=== PATIENT | male | born 1975 | race Caucasian/White ===

== ENCOUNTER 2016-12-14 17:27 | Emergency (ER) | payer OTHER ==
[2016-12-14 17:40] VITALS: RESP 18
[2016-12-14] MEDS ORDERED: ACETAMINOPHEN TAB 500 MG TAB PO STA (18:59)
[2016-12-14] MEDS ORDERED: ONDANSETRON ODT 4 MG TAB PO STA (18:59)
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
[2016-12-14 20:15] VITALS: TEMP 97.7
--- NOTE | 2016-12-14 20:33 | CT ---
EXAMINATION TYPE: CT brain wo con DATE OF EXAM: 12/14/2016 COMPARISON: NONE HISTORY: Fall with posterior head injury. Visual disturbance, depth perception changes and nausea. CT DLP: 1108.[address] of the brain was performed. The ventricles, basal cisterns and sulci overlying the cerebral convexities demonstrate a normal appe arance. There is no evidence for intracranial hemorrhage or sulcal effacement. No mass effects are seen. Osseous calvarium is intact. If symptoms persist consider MRI as clinically warranted. IMPRESSION: 1. No acute intracranial process is seen at this time.
[2016-12-14 20:54] VITALS: BP 111/55; PULSE 55
== END 2016-12-14 21:00 | disposition home or self-care (01) ==
LOC: EC 17:27
DX: S06.0X9A Concussion with loss of consciousness of unspecified duration, initial encounter (principal); R41.0 Disorientation, unspecified; H53.8 Other visual disturbances; W10.9XXA Fall (on) (from) unspecified stairs and steps, initial encounter
CPT/HCPCS: 70450; 99283

== ENCOUNTER 2017-01-17 18:50 | Emergency (ER) | payer OTHER ==
[2017-01-17 19:21] VITALS: BP 160/90; PULSE 81; RESP 20; TEMP 97.6
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
== END 2017-01-17 20:25 | disposition home or self-care (01) ==
LOC: EC 18:50
DX: S61.011A Laceration without foreign body of right thumb without damage to nail, initial encounter (principal); W26.8XXA Contact with other sharp object(s), not elsewhere classified, initial encounter; Y93.89 Activity, other specified
CPT/HCPCS: 12001; 99282

== ENCOUNTER 2017-05-24 15:16 | Emergency (ER) | payer OTHER ==
[2017-05-24] MEDS ORDERED: PROPARACAINE 0.5% OPHTH DROPS 15 ML BTL BOTH EYES STA (15:28)
[2017-05-24 15:34] VITALS: PULSE 72; RESP 20
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
[2017-05-24] MEDS ORDERED: CIPROFLOXACIN 0.3% OPHTH SOLN 5 ML BTL BOTH EYES STA (16:20)
[2017-05-24] MEDS ORDERED: TOPICAL SKIN ADHESIVE 1 EACH AMP TOPICAL ONE (16:34)
[2017-05-24 16:47] VITALS: BP 122/56; TEMP 97.8
== END 2017-05-24 16:46 | disposition home or self-care (01) ==
LOC: EC 15:16
DX: T15.92XA Foreign body on external eye, part unspecified, left eye, initial encounter (principal); S60.412A Abrasion of right middle finger, initial encounter; X58.XXXA Exposure to other specified factors, initial encounter; Y93.89 Activity, other specified
CPT/HCPCS: 99283

== ENCOUNTER 2019-06-29 21:37 | Inpatient (IN) | payer MEDICAID, OTHER ==
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
[2019-06-30 01:35] LABS: Amphetamine Screen,Urine Detected (NotDetected); Barbiturate Screen,Urine Not Detected (NotDetected); Benzodiazepines Screen,Urine Not Detected (NotDetected); Cocaine Screen,Urine Not Detected (NotDetected); Methadone Screen, Urine Not Detected (NotDetected); Opiate Screen,Urine Not Detected (NotDetected); Oxycodone Screen, Urine Not Detected (NotDetected); Phencyclidine Screen,Urine Not Detected (NotDetected); Tricyclic Antidepressant,Urine Not Detected (NotDetected); Urn Cannabinoid Scrn Not Detected (NotDetected)
[2019-06-30] MEDS ORDERED: MAG HYDROX/AL HYDROX/SIMETH 30 ML CUP PO PRN (04:24)
[2019-06-30] MEDS ORDERED: LORazepam 1 MG TAB PO PRN (04:24)
[2019-06-30] MEDS ORDERED: ACETAMINOPHEN TAB 325 MG TAB PO PRN (04:24)
[2019-06-30] MEDS ORDERED: ZIPRASIDONE 20 MG VIAL IM PRN (04:24)
[2019-06-30] MEDS ORDERED: MAGNESIUM HYDROXIDE 2,400 MG/10 ML CUP PO PRN (04:24)
[2019-06-30 08:24] LABS: Basophils # (A) 0.1 k/uL (0-0.2); Basophils % (A) 1 %; Eosinophils # (A) 0.7 k/uL (0-0.7); Eosinophils % (A) 8 %; HCT 47.6 % (39.0-53.0); HGB 15.7 gm/dL (13.0-17.5); Lymphocytes # (A) 3.5 k/uL (1.0-4.8); Lymphocytes % (A) 41 %; MCH 30.4 pg (25.0-35.0); MCHC 32.9 g/dL (31.0-37.0); MCV 92.4 fL (80.0-100.0); Mean Platelet Volume 6.3; Monocytes # (A) 0.6 k/uL (0-1.0); Monocytes % (A) 6 %; Neutrophils # (A) 3.5 k/uL (1.3-7.7); Neutrophils % (A) 41 %; Platelet Count 411 k/uL (150-450); RBC 5.16 m/uL (4.30-5.90); WBC 8.6 k/uL (3.8-10.6)
[2019-06-30 08:29] LABS: Albumin 4.1 g/dL (3.5-5.0); Calcium 9.1 mg/dL (8.4-10.2); Potassium 4.5 mmol/L (3.5-5.1)
[2019-06-30] MEDS: NICOTINE 14MG/24HR PATCH TRANSDERM SCH (09:24)
[2019-06-30 09:52] LABS: Bilirubin,Unconjugated 0.4 mg/dL (0.0-1.1); Total Bilirubin 0.3 mg/dL (0.2-1.3)
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
[2019-06-30] MEDS: buPROPion XL 150 MG TAB.ER.24H PO SCH (11:20)
[2019-06-30 18:59] LABS: Hemoglobin A1C 5.5 % (4.0-6.0)
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
[2019-06-30] MEDS: TERBINAFINE 1% CREAM 15 GM TUBE TOPICAL SCH (23:50)
[2019-07-01 06:23] VITALS: BP 139/63; PULSE 69; RESP 14; TEMP 97.9
[2019-07-01] MEDS: buPROPion XL 150 MG TAB.ER.24H PO SCH (08:54)
[2019-07-01] MEDS: TERBINAFINE 1% CREAM 15 GM TUBE TOPICAL SCH (08:54)
[2019-07-01] MEDS: NICOTINE 14MG/24HR PATCH TRANSDERM SCH (08:55)
--- NOTE | 2019-07-01 10:50 | P.DS ---
Providers Date of admission: 06/30/19 04:13 Expected date of discharge: 07/01/19 Attending physician: Luís Tate Consults: 06/30/19 04:24 Consult Physician Routine Consulting Provider: Jorge Boyce Consult Reason/Comments: H & P Do you want consulting provider notified?: Already Contacted Primary care physician: Stated None - Discharge Diagnosis(es) (1) Major depressive disorder, recurrent severe without psychotic features Current Visit: Yes Status: Acute Priority: High (2) Methamphetamine use disorder, severe Current Visit: Yes Status: Acute Priority: High (3) Cannabis use disorder, moderate, dependence Current Visit: Yes Status: Acute Priority: Medium Hospital Course: Brief summary of admission note: This patient is a 44-year-old male who was admitted to the mental health unit with suicidal ideation. He presented to the emergency room describing a plan of wanting to hang himself out in the [place]. He described losing his home his vehicle and several other items. He described a 1 year history of heavy methamphetamine use. There has been relationship discord between him and his girlfriend of 13 years. For these reasons he felt overwhelmed and hopeless. For full details please refer to my psychiatric evaluation dated 06/30/2019. Summary of hospital course: The patient was admitted to the mental health unit voluntarily. We reviewed his presenting symptoms and treatment options. He did endorse symptoms consistent with major depressive disorder in the context of methamphetamine use disorder. He was seen by internal medicine for routine history and physical exam. Social work met with the patient to complete a ps ychosocial assessment. The patient selectively attended groups. He demonstrated no agitated behavior. He quickly reported a resolution of any hopeless thinking or suicidal ideation. He states he needs to remain sober find employment and work on the relationship with his girlfriend. Additionally he described his desire to spend more time with his children as they used to be a focus of his in the past. We did start him on Wellbutrin XL 4 symptoms of depression. So far he reports no side effects to that medication. He has no reported history of seizures. We discussed his use of methamphetamine and we recommended inpatient chemical dependency treatment but he is refusing. He states he is not able to do that as he needs to get back to work. [employer] work has been able to contact his girlfriend via phone to gather collateral information and for discharge planning purposes. Mental status exam: The patient is alert he stressors unclothing hygiene grooming adequate. Eye contact is appropriate speech is fluent spontaneous nonpressured. He indicates his mood is better. He states that he has had time to think about what he needs to change and provide several examples the future oriented thinking as noted above. He states he does not feel hopeless he reports no suicidal ideation intent or plan. He states "I could never do that". He reports no homicidal ideation intent or plan. He denies having any auditory or visual hallucinations or any specific delusions. There is no observed evidence of psychosis. He demonstrates no tangential thinking loose associations or flight of ideas. He does not appear hypomanic or manic. Insight and judgment have improved. Grossly has cognitively intact, he is oriented to person place and date. Affect is appropriately expressive. He demonstrates no verbal or physical aggressiveness he demonstrates no involuntary repetitive movements. Impressions 1. Major depressive disorder recurrent severe without psychosis, methamphetamine use disorder severe, cannabis use disorder moderate Plan: The patient will be discharged mental health unit today to return home with his girlfriend. Social work will contact her via phone prior to his discharge. The patient will continue on Wellbutrin XL at 300 mg in the morning. Social work will arrange his outpatient follow-up at [facility] [place]. Again we offered referral for inpatient chemical dependency treatment but he refuses. He does not wish to have any medication prescribed specifically for substance use disorders. At this time there is no imminent safety risk he is appropriate for continued care as an outpatient. He is instructed to abstain from all substances including alcohol and marijuana and obviously illicit drugs. We discussed that the substances would provoke mood symptoms and elevate his safety risk. He is instructed to return to the hospital with any acute safety concerns. Patient Condition at Discharge: Stable Plan - Discharge Summary Discharge Rx Participant: No New Discharge Prescriptions: New buPROPion HCL [Wellbutrin XL] 300 mg PO DAILY #30 tab Discontinued Ciprofloxacin Ophth Soln [Cipro Ophth Soln] 1 drops LEFT EYE Q4HR #1 bottle Discharge Medication List buPROPion HCL [Wellbutrin XL] 300 mg PO DAILY #30 tab 07/01/19 [Rx] Follow up Appointment(s)/Referral(s): None,Stated [Primary Care Provider] - 1-2 days Activity/Diet/Wound Care/Special Instructions: Activity and diet as tolerated. Avoid the use of street drugs and alcohol. Take all medications as prescribed. When you are in need of refills on your medications please contact your medical provider and/or outpatient psychiatrist to have this done. Please go to scheduled outpatient appointment for aftercare treatment. If symptoms return or become worse, call the crisis line at and/or go to the nearest emergency room for evaluation.
== END 2019-07-01 13:24 | disposition home or self-care (01) | DRG 885 ==
LOC: EC 21:37 → 3MHU 06-30 04:13
PROVIDERS: ADMIT Psychiatry & Neurology Psychiatry; ATTEND Psychiatry & Neurology Psychiatry
DX: F33.2 Major depressive disorder, recurrent severe without psychotic features (principal); R45.851 Suicidal ideations; B35.3 Tinea pedis; F12.20 Cannabis dependence, uncomplicated; F15.10 Other stimulant abuse, uncomplicated; Z88.5 Allergy status to narcotic agent
CPT/HCPCS: 80053; 80061; 80306; 82075; 82248; 83036; 84443; 85025; 99284

== ENCOUNTER 2019-11-04 17:45 | Emergency (ER) | payer OTHER ==
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
[2019-11-04 18:54] VITALS: BP 136/90; PULSE 71; RESP 18; TEMP 98.1
== END 2019-11-04 18:52 | disposition home or self-care (01) ==
LOC: EC 17:45
DX: S05.02XA Injury of conjunctiva and corneal abrasion without foreign body, left eye, initial encounter (principal); Z88.5 Allergy status to narcotic agent; Z87.891 Personal history of nicotine dependence; W22.8XXA Striking against or struck by other objects, initial encounter
CPT/HCPCS: 99283

== ENCOUNTER 2019-11-21 21:05 | Inpatient (IN) | payer MEDICAID, OTHER ==
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
[2019-11-22] MEDS ORDERED: MAG HYDROX/AL HYDROX/SIMETH 30 ML CUP PO PRN (06:49)
[2019-11-22] MEDS ORDERED: MAGNESIUM HYDROXIDE 2,400 MG/10 ML CUP PO PRN (06:49)
[2019-11-22] MEDS ORDERED: LORazepam 1 MG TAB PO PRN (07:00)
[2019-11-22] MEDS ORDERED: ZIPRASIDONE 20 MG VIAL IM PRN (07:00)
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
[2019-11-22] MEDS: OLANZapine 5 MG TAB PO SCH ×2 (20:28→22:34)
[2019-11-23 06:26] VITALS: RESP 16
[2019-11-23] MEDS: OLANZapine 5 MG TAB PO SCH ×2 (09:43→22:04)
[2019-11-23 11:18] LABS: Basophils # (A) 0.1 k/uL (0-0.2); Basophils % (A) 1 %; Eosinophils # (A) 0.6 k/uL (0-0.7); Eosinophils % (A) 9 %; HGB 15.5 gm/dL (13.0-17.5); Lymphocytes % (A) 31 %; MCH 29.7 pg (25.0-35.0); MCHC 31.6 g/dL (31.0-37.0); MCV 94.1 fL (80.0-100.0); Mean Platelet Volume 6.7; Monocytes # (A) 0.4 k/uL (0-1.0); Monocytes % (A) 6 %; Neutrophils # (A) 3.2 k/uL (1.3-7.7); Neutrophils % (A) 50 %; Platelet Count 368 k/uL (150-450); RDW 12.5 % (11.5-15.5); WBC 6.4 k/uL (3.8-10.6)
[2019-11-23 11:27] LABS: ALT 26 U/L (4-49); AST 23 U/L (17-59); African American GFR (CKD) >90 (>60 ml/min/1.73 sqM); Albumin 3.8 g/dL (3.5-5.0); Alkaline Phosphatase 55 U/L (38-126); Anion Gap 6 mmol/L; Blood Urea Nitrogen 16 mg/dL (9-20); Calcium 9.4 mg/dL (8.4-10.2); Carbon Dioxide 25 mmol/L (22-30); Chloride 107 mmol/L (98-107); Glucose 94 mg/dL (74-99); Non-African American GFR(CKD) 88 (>60 ml/min/1.73 sqM); Potassium 4.6 mmol/L (3.5-5.1); Sodium 138 mmol/L (137-145); Total Bilirubin 0.3 mg/dL (0.2-1.3); Total Protein 6.4 g/dL (6.3-8.2)
--- NOTE | 2019-11-23 13:02 | PN ---
PROGRESS NOTE DATE OF SERVICE: 11/23/2019. CHIEF COMPLAINT: The patient was depressed. He said that for the last week, "I did not feel right." He made an attempt to hang himself by tying a rope around his neck, though the rope broke. INTERVAL HISTORY: Patient has been doing fair. He had a quiet evening yesterday. He chooses not to attend groups. He tends to keep to himself and spends a fair amount of time in his room. When staff had interactions with him, he did talk about guilt feelings that he has about bad decisions he has made in the past. He slept 6 hours last night. Today he has been up. He said he slept into the morning and feels very tired today. He did not voice any immediate concerns when I interviewed him. He was unclear about whether the whether he thinks a tiredness relates to medications or just his general situation. I made an attempt to discuss withdrawal issues, though the patient was having problems focusing. It is unclear whether or not he tolerates his psychotropic medications. MENTAL STATUS: Patient sat without restlessness. Eye contact was poor. Psychomotor activity slowed. He answered questions with 1 or 2 word responses. He did not say much. His affect was flat. His mood depressed. It was difficult to assess how distressed he might be. There was no indication of thought disorder. He voiced no thoughts of harm. He was oriented to his circumstances and surroundings. ASSESSMENT: I will continue the current diagnosis and treatment plan. The patient presents as being quite sedated, though it is unclear whether or not that relates to medications or other factors. I made an effort to discuss withdrawal issues, though the patient basically said he did not feel he was in a good situation to talk at present. I encouraged the patient to interact with staff as needed to express any concerns he has. I said that we could talk later if he felt that would be helpful. I encouraged him to do some therapeutic walking to help him to relax and to manage some early withdrawal issues that he is likely to have relating to marijuana withdrawal. We will focus on stabilization and discharge planning. MMRAFAL / ARLENEN: [id number] /
[2019-11-24] MEDS: OLANZapine 5 MG TAB PO SCH ×3 (09:19→22:08)
--- NOTE | 2019-11-24 11:26 | P.PN ---
Subjective Progress Note Date: 11/24/19 Principal diagnosis: Major depression recurrent severe The patient is minimizing the seriousness of what he did when he hung himself and the rope broke however was several days after the incident before he came in the hospital and he assures me that he is going to go to counseling to find out why he would do such a thing because now he is committed to the fact that killing himself would be bad for his children. He says that his acts had threatened to take his kids away and he would never see them again and that led into a downward spiral. Of course at the time she said that she had no power to make that happen now with him trying to hang himself it certainly gives her more standing so he does the opposite of what would work he says he is eating well sleeping well physical energy is fine no suicidal thoughts "I'll never do that again" and he is refusing any medication says her he don't need it I pull myself out of these lows before. Objective patient is not insightful but he is oriented alert reasonably cooperative good eye contact gait and station normal psychomotor activity is normal self-care is adequate no signs of psychosis no tearfulness no aggression. Assessment plan: The patient is a bit of a flight into health have to make sure does not for him to go out and kill himself. If he goes to the groups and talks up and continues to have a consistent positive story L discharge him tomorrow Objective - Vital Signs Vital signs: Vital Signs Temp 97.8 F 11/24/19 06:33 Pulse 49 L 11/24/19 06:33 Resp 16 11/24/19 06:33 BP 115/72 11/24/19 06:33 Pulse Ox 98 11/22/19 06:41 - Labs CBC & Chem 7: 11/23/19 10:55 11/23/19 10:55 Labs: Abnormal Lab Results - Last 24 Hours (Table) 11/23/19 Range/Units 10:55 Free T4 0.70 L (0.78-2.19) ng/dL
[2019-11-24] MEDS: ACETAMINOPHEN TAB 325 MG TAB PO PRN (12:57)
[2019-11-24 16:37] LABS: Appearance,Urine Clear (Clear); Color,Urine Yellow; Glucose,Urine (UA) Negative (Negative); Protein,Urine Negative (Negative); Specific Gravity,Urine 1.005 (1.001-1.035)
[2019-11-24 16:38] LABS: Bilirubin,Urine Negative (Negative); Blood,Urine Negative (Negative); Ketones,Urine Negative (Negative); Leukocyte Esterase,Urine Negative (Negative); Nitrite,Urine Negative (Negative); Urobilinogen,Urine 0.2 mg/dL (<2.0)
[2019-11-25 03:23] LABS: Urine Alcohol Negative (Negative); Urine Barbiturate Negative (Negative); Urine Cocaine Negative (Negative); Urine Methadone Negative (Negative); Urine Opiates Negative (Negative); Urine Phencyclidine Negative (Negative)
[2019-11-25] MEDS: ACETAMINOPHEN TAB 325 MG TAB PO PRN (05:24)
[2019-11-25 06:14] VITALS: BP 122/76; PULSE 83; TEMP 97.5
--- NOTE | 2019-11-25 09:01 | P.DS ---
Providers Date of admission: 11/22/19 06:34 Expected date of discharge: 11/25/19 Attending physician: Augustina Ellis MD Consults: 11/22/19 07:00 Consult Physician Routine Consulting Provider: Jorge Boyce Consult Reason/Comments: New Admission H & P Do you want consulting provider notified?: Already Contacted Primary care physician: Stated None Hospital Course: The patient has low insight and does not want to look at the possibility that he might have depression that has a mind of it's own. He had been depressed before and pulled himself out by his own efforts. One really positive thing is he said that he is going to have to apologize to the people he hurt by not calling them instead of trying suicide. He was admitted to the hospital because of the worries of his dad and girlfriend and that was based on the fact that he had tried to hang himself and the rope broke. He points out that it been several days since that incident in he had not wanted to try it again and that he has no suicidal thoughts and that he is focused on all the reasons why he should not kill himself and he says I'll never do that again it would be wrong for my children. In the hospital he has not wanted they're taken medications. He has attended groups as I asked him to and function reasonably well talking with peers and staff and not requiring assistance to figure out what was going on. However he tends to arrived late went to 3 groups yesterday and tended to wander in and out. Staff assessment of his functioning yesterday is that he was withdrawn come more cooperative and compliant vague and concrete energy low oriented to person place time and circumstance no evidence of or acknowledgment of psychosis denying any suicidal or homicidal thoughts. He has been sleeping well. Assessment: The patient was not a danger to himself or others at this point does not show symptoms of slowing at think will do fairly well even without medicines if he follows through on counseling. The patient has a place to stay, he has a job that he can dive right into, he plans to go to counseling, he plans to put together an emergency support group that he will call if he gets to feeling suicidal again. He has children that he can see and that are very important to him. Plan: Discharged patient today Assessment: Patient does not have much insight but seems to be motivated to focus on the positives in his life and to go to counseling. I reviewed with him how to maximize benefit from counseling. Health Concerns: Patient has no reported history of medical problems and did not complain of any medical problems in the hospital His vital signs were good temperature 97.5 heart rate 83 respirations 16 blood pressure 122/96 pO2 is 98 Pertinent Studies: Labs he had is hematology was fine general chemistry was fine TSH was fine although free T4 was slightly low he should be 0.78 or iron it was 0.7 so he could be slightly hypothyroid urinalysis was fine intact toxicology was negative. He'll be referred to his family doctor to follow-up issues with the thyroid No other procedures done Procedures: Not Patient Condition at Discharge: Fair Plan - Discharge Summary New Discharge Prescriptions: No Action No Known Home Medications Discharge Medication List No Known Home Medications 11/21/19 [History] Follow up Appointment(s)/Referral(s): None,Stated [Primary Care Provider] - 1-2 days Activity/Diet/Wound Care/Special Instructions: Activity and diet as tolerated. Avoid the use of street drugs and alcohol. Take all medications as prescribed. When you are in need of refills on your medications please contact your medical provider and/or outpatient psychiatrist to have this done. Please go to scheduled outpatient appointment for aftercare treatment. If symptoms return or become worse, call the crisis line at and/or go to the nearest emergency room for evaluation.
[2019-11-25] MEDS: OLANZapine 5 MG TAB PO SCH (09:53)
== END 2019-11-25 11:26 | disposition home or self-care (01) | DRG 885 ==
LOC: EC 21:05 → 3MHU 11-22 06:34
PROVIDERS: ADMIT Psychiatry & Neurology Psychiatry; ATTEND Psychiatry & Neurology Psychiatry
DX: F33.2 Major depressive disorder, recurrent severe without psychotic features (principal); R45.851 Suicidal ideations; F12.23 Cannabis dependence with withdrawal; F15.21 Other stimulant dependence, in remission; Z87.891 Personal history of nicotine dependence; Z88.5 Allergy status to narcotic agent
CPT/HCPCS: 80053; 80306; 81003; 82075; 84439; 84443; 85025; 99285

== ENCOUNTER 2022-02-05 03:33 | Emergency (ER) | payer OTHER ==
[2022-02-05 03:45] VITALS: BP 143/101; PULSE 88; RESP 15; TEMP 97.5
[2022-02-05] MEDS ORDERED: TOPICAL SKIN ADHESIVE 1 EACH AMP TOPICAL ONE (03:45)
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
--- NOTE | 2022-02-05 04:45 | XR ---
EXAMINATION TYPE: XR knee limited LT DATE OF EXAM: 02/05/2022 COMPARISON: NONE HISTORY: Knee pain TECHNIQUE: 2 views FINDINGS: Hypertrophic spurring is present of the femoral and tibial condyles. There is mild narrowin g of the medial joint space. There is spurring on the anterior distal femur. There is mild knee joint effusion. IMPRESSION: Hypertrophic osteoarthritis. No fracture.
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
== END 2022-02-05 06:01 | disposition home or self-care (01) ==
LOC: EC 03:33
DX: S09.90XA Unspecified injury of head, initial encounter (principal); Z87.891 Personal history of nicotine dependence; F12.90 Cannabis use, unspecified, uncomplicated; Z88.5 Allergy status to narcotic agent; Y04.8XXA Assault by other bodily force, initial encounter
CPT/HCPCS: 70450; 72125; 99285